=== PATIENT | male | born 1940 | race Hispanic/Latino ===

== ENCOUNTER 2017-12-29 06:44 | Day surgery (SDC) | payer MEDICARE ==
[2017-12-29] MEDS ORDERED: NACL 0.9% 500 ML 500 ML IV SCH (09:00)
[2017-12-29] MEDS ORDERED: ATROPINE 0.1% (CARDIAC) ONE (10:02)
[2017-12-29] MEDS ORDERED: ADRENALIN ONE (10:02)
[2017-12-29] MEDS: NITROSTAT SL ONE ×2 (10:13→10:14)
[2017-12-29 10:52] VITALS: BP 124/62
--- NOTE | 2017-12-29 13:12 | Short Stay Summary ---
Short Stay Documentation Date of service: 12/29/17 - History H&P: obtained from office - Allergies and Medications Current Medications: Allergies hydromorphone [From Dilaudid] Allergy (Verified 12/29/17 08:15) Unknown Home Medications Medication Instructions Recorded Confirmed Last Taken Type Aspirin [Aspir-Low] 81 mg PO DAILY 12/29/17 12/29/17 12/28/17 History 81mg Esomeprazole Magnesium [Nexium] 40 mg PO DAILY 12/29/17 12/29/17 12/28/17 History 40mg Fluticasone/Salmeterol [Advair 2 inhalation INHALATION BID 12/29/17 12/29/1711/16 History 250-50 Diskus] 2 Gabapentin [Neurontin] 300 mg PO BID 12/29/17 12/29/17 12/28/17 History 300mg Insulin Glargine,Hum.rec.anlog 35 units SC DAILY 12/29/17 12/29/17 12/28/17 History [Lantus] 35units Levothyroxine [Synthroid] 100 mcg PO DAILY 12/29/17 12/29/17 12/28/17 History 100mcg Lisinopril [Zestril] 10 mg PO DAILY 12/29/17 12/29/17 12/28/17 History 10mg Loratadine [Claritin] 10 mg PO DAILY 12/29/17 12/29/17 12/28/17 History 10mg Pravastatin [Pravachol] 20 mg PO QHS 12/29/17 12/29/17 12/28/17 History 20mg - Physical exam General appearance: no acute distress Integumentary: no rash HEENT: Atraumatic Lungs: Clear to auscultation Breasts: deferred Heart: Regular rate Gastrointestinal: normal Male Genitourinary: deferred Female Genitourinary: deferred Rectal Exam: deferred Extremities: no ischemia Neurological: Normal gait - Brief post op/procedure progress note Date of procedure: 12/29/17 Pre-op diagnosis: Syncope Post-op diagnosis: same Procedure: TTT Anesthesia: none Findings: See report Surgeon: COLLEEN ESPITIA Estimated blood loss: none Pathology: none Condition: stable - Hospital course Hospital course: Uneventful - Disposition Condition at discharge: Good Disposition: DC-01 TO HOME OR SELFCARE Short Stay Discharge Plan Activity: advance as tolerated, no driving until cleared by PCP Weight Bearing Status: Non-Weight Bearing Diet: low fat, low cholesterol, low salt Additional Instructions: Follow up with Bicycle Technician at next schedule appointment. Follow up with: ROBBIE FAN PA [Primary Care Provider] - 7 Days
--- NOTE | 2017-12-29 21:25 | Procedure Note ---
PROCEDURE: Tilt table test. ORDERING PHYSICIAN: Duke Matthews MD INDICATION: Syncope. DESCRIPTION OF PROCEDURE: After obtaining written consent, the patient was brought to the environmental laboratory technician area. The patient was secured to the tilt table test. His blood pressure prior to tilting was 154/80 with a heart rate of 95 beats per minute. Immediately after tilting to 85 degrees from horizontal, the blood pressure was 160/78 with a heart rate of 73 beats per minute. The patient was kept in the upright position for 10 minutes. At the end of which, his blood pressure was 160/81 with a heart rate of 86 beats per minute. He was given sublingual nitroglycerin 0.4 mg and 6 minutes after the nitroglycerin sublingual, his blood pressure was 110/68 with a heart rate of 104. The patient did not experience any syncopal episode and did not complain of dizziness. His heart rate remained between 90-110 and his lowest recorded blood pressure was 110/68. No evidence of bradyarrhythmias or significant vasodepressor response. IMPRESSION: This is a negative tilt-table test. JOB# [id number] MALI/CARON
== END 2017-12-29 11:30 | disposition home or self-care (01) ==
LOC: CATHLABREC 06:44
PROVIDERS: ATTEND Internal Medicine
DX: R55 Syncope and collapse (principal); Z79.84 Long term (current) use of oral hypoglycemic drugs; Z79.899 Other long term (current) drug therapy
CPT/HCPCS: 93660; J7040; J0171; J0461